=== PATIENT | female | born 1960 ===

== ENCOUNTER 2017-03-30 07:06 | Day surgery (SDC) | payer MEDICAID ==
[2016-10-10 10:44] VITALS: BMI 40.7
[2017-03-30] MEDS ORDERED: Lactated Ringer's 500 ML IV ONE (07:58)
[2017-03-30] MEDS ORDERED: Propofol 10 mg/ml Inj (20 ML) ONE (08:19)
[2017-03-30 09:35] VITALS: TEMP 97; O2SAT 100
[2017-03-30 09:45] VITALS: BP 127/72; PULSE 69; RESP 18
== END 2017-03-30 15:18 | disposition home or self-care (01) ==
LOC: H.ENDO 07:06
PROVIDERS: ATTEND Internal Medicine Gastroenterology
DX: K29.70 Gastritis, unspecified, without bleeding (principal); K59.00 Constipation, unspecified; K63.5 Polyp of colon; G47.33 Obstructive sleep apnea (adult) (pediatric); J45.909 Unspecified asthma, uncomplicated; E11.9 Type 2 diabetes mellitus without complications; I10 Essential (primary) hypertension; K64.8 Other hemorrhoids; K30 Functional dyspepsia; K44.9 Diaphragmatic hernia without obstruction or gangrene

== ENCOUNTER 2018-05-27 00:01 | Emergency (ER) | payer MEDICAID ==
[2018-05-27 00:24] VITALS: BMI 52.8
[2018-05-27 00:28] VITALS: RESP 16; TEMP 97.5; O2SAT 100
--- NOTE | 2018-05-27 00:31 | ED PDOC ---
HPI: General Adult Time Seen by Provider: 05/27/18 00:30 Chief Complaint (Nursing): Medical Clearance Chief Complaint (Provider): clearance History Per: Patient Additional Complaint(s): 57-year-old female presents to emergency department in police custody for medical and psychiatric clearance. Patient states that she took her metformin and insulin at home but then did not have a chance to eat and is concerned her glucose level may drop. Patient has slight headache upon arrival but offers no other complaints. Patient denies any psychiatric complaints. She arrives with [place] police chief at bedside. PMD: Dr. Bey Past Medical History Reviewed: Historical Data, Nursing Documentation, Vital Signs Vital Signs: Last Vital Signs Temp 97.5 F L 05/27/18 00:24 Pulse 67 05/27/18 00:24 Resp 16 05/27/18 00:24 BP 123/97 H 05/27/18 00:24 Pulse Ox 100 05/27/18 01:11 - Medical History PMH: Anemia, Anxiety, Arthritis, Asthma, CAD, Depression, Diabetes, HTN, Hypercholesterolemia, Hypothyroidism, Seizures, Sleep Apnea, TIA - Surgical History Surgical History: Back Surgery, Coronary Stent Other surgeries: b/l shoulder surgery - Family History Family History: States: Diabetes - Living Arrangements Living Arrangements: With Family - Social History Current smoker - smoking cessation education provided: No Alcohol: None Drugs: Denies - Home Medications Home Medications: Ambulatory Orders Medication Instructions Recorded Carvedilol Phosphate [Coreg Cr] 80 mg PO DAILY 10/10/16 Clopidogrel [Plavix] 75 mg PO DAILY 10/10/16 MetFORMIN [glucOPHAGE] 1,000 mg PO BID 10/10/16 Insulin Lispro [humALOG] 34 units SC TID 03/30/17 Albuterol HFA [Ventolin HFA 90 2 puff IH [id number] PRN #1 inhaler 04/15/17 mcg/actuation (8 g)] Levothyroxine Sodium 75 mcg PO DAILY 04/15/17 Loratadine [Claritin] 1 mg PO DAILY #30 tab 04/15/17 Montelukast [Singulair] 1 tab PO DAILY #30 tab 04/15/17 Simethicone 1 tab PO QID #40 capsule 04/15/17 Valsartan [Diovan] 160 mg PO DAILY 04/15/17 - Allergies Allergies/Adverse Reactions: Allergies Allergy/AdvReac Type Severity Reaction Status Date / Time No Known Allergies Allergy Verified 05/27/18 00:24 Review of Systems ROS Statement: Except As Marked, All Systems Reviewed And Found Negative Psych: Negative for: Suicidal ideation Physical Exam - Reviewed Vital Signs Reviewed: Yes - Physical Exam Appears: Positive for: Well, Non-toxic, No Acute Distress Skin: Positive for: Normal Color. Negative for: Rash Eye Exam: Positive for: Normal appearance Cardiovascular/Chest: Positive for: Regular Rate, Rhythm Respiratory: Positive for: Normal Breath Sounds. Negative for: Wheezing, Respiratory Distress Extremity: Positive for: Normal ROM Neurologic/Psych: Positive for: Alert, Oriented - ECG O2 Sat by Pulse Oximetry: 100 Pulse Ox Interpretation: Normal Medical Decision Making Medical Decision Makin57 year old female here for medical and psychiatric clearance, police chief with patient at bedside Plan: Glucose POC: 50 - patient was given juice and sandwich Crisis eval As per crisis counselor and psychiatrist automation qa analyst Dr. Mcnally, patient does not meet criteria for psych admission and is stable for discharge. Repeat glucose - 96 Patient is medically and psychiatrically stable for incarceration. Disposition - Clinical Impression Clinical Impression: Diabetes mellitus, Adjustment disorder - Patient ED Disposition Is Patient to be Admitted: No - Disposition Referrals: Tal Bey MD [Primary Care Provider] - Disposition: Discharged/Transfer to Law Enforcement Disposition Time: 02:50 Condition: FAIR Additional Instructions: Patient is medically and psychiatrically stable for incarceration Instructions: General (DC) Forms: blabfeed (Citizen Of [place])
[2018-05-27 03:01] VITALS: BP 127/70; PULSE 71
== END 2018-05-27 04:30 ==
LOC: H.ER 00:01
DX: E11.9 Type 2 diabetes mellitus without complications (principal); F43.22 Adjustment disorder with anxiety; Z79.4 Long term (current) use of insulin